=== PATIENT | female | born 1975 | race Hispanic/Latino ===

== ENCOUNTER 2021-02-26 00:45 | Emergency (ER) | payer BC ==
[~2021-02-26] VITALS: Ht 157.5 cm; Wt 93.0 kg
[2021-02-26 00:51] VITALS: BP 142/80
[2021-02-26] MEDS ORDERED: 0.9%NACL 1000ML 1,000 ML IV ONE (02:30)
[2021-02-26 02:44] LABS: BASOPHILS % (AUTO) 0.7 % (0.0-5.0); EOSINOPHILS % (AUTO) 1.3 % (0.0-8.0); HEMATOCRIT 41.8 % (36-48); LYMPHOCYTES % (AUTO) 22.8 % (21.0-51.0); MEAN CORPUSCULAR HEMOGLOBIN 29.4 pg (27.0-33.0); MEAN CORPUSCULAR HGB CONC 32.5 g/dL (32.0-36.0); MEAN CORPUSCULAR VOLUME 90.3 fL (79-99); MONOCYTES % (AUTO) 5.4 % (3.0-13.0); NEUTROPHILS % (AUTO) 69.7 % (40.0-77.0); PLATELET COUNT (AUTO) 167 K/uL (130-400); RED BLOOD CELL COUNT(AUTO) 4.63 MIL/uL (4.00-5.50); RED CELL DISTRIBUTION WIDTH 13.2 % (11.0-15.5); WHITE BLOOD COUNT (AUTO) 7.2 K/uL (4.8-10.8)
[2021-02-26 02:58] LABS: CREATININE 0.7 mg/dL (0.5-1.5); POTASSIUM 4.1 mmol/L (3.5-5.1)
[2021-02-26 03:11] LABS: ALBUMIN 3.7 g/dL (3.5-5.0); BILIRUBIN,TOTAL 0.3 mg/dL (0.2-1.0); THYROID STIMULATING HORMONE 2.08 uIU/mL (0.36-3.74); TOTAL PROTEIN, SERUM 7.8 g/dL (6.0-8.3)
[2021-02-26 03:26] LABS: BILIRUBIN,URINE Negative (NEGATIVE); COLOR,URINE Yellow (YELLOW); GLUCOSE, URINE (UA) Negative (NEGATIVE); KETONES,URINE Negative (NEGATIVE); LEUKOCYTE ESTERASE ,URINE Moderate (NEGATIVE); NITRATE,URINE Negative (NEGATIVE); OCCULT BLOOD,URINE Negative (NEGATIVE); PROTEIN,URINE Negative (NEGATIVE)
[2021-02-26 03:27] LABS: HCG,QUAL RESULT NEGATIVE (NEGATIVE)
[2021-02-26 03:34] LABS: APPEARANCE,URINE CLOUDY (CLEAR)
[2021-02-26 03:55] LABS: BACTERIA,URINE Rare /HPF (None Seen); RBC,URINE None Seen /HPF (0-1)
[2021-02-26 04:06] VITALS: BP 115/59
== END 2021-02-26 05:27 | disposition home or self-care (01) ==
LOC: EDH 00:45
DX: F41.1 Generalized anxiety disorder (principal); E86.9 Volume depletion, unspecified; I10 Essential (primary) hypertension; R20.0 Anesthesia of skin
CPT/HCPCS: 36415; 71045; 80053; 81001; 81025; 84443; 85025; 87088; 93005